=== PATIENT | female | born 1985 | race Caucasian/White ===

== ENCOUNTER 2018-02-06 11:27 | Emergency (ER) | payer OTHER ==
--- NOTE | 2018-02-06 11:42 | EDPHY ---
H & P Time Seen by Provider: 02/06/18 11:41 HPI/ROS: Chief complaint. Abdominal pain HPI. 33-year-old female presents emergency department with upper abdominal pain for 1 week. She describes as aching. There is no radiation. It is mainly epigastric. Seems to hurt more with eating. No nausea vomiting or diarrhea. No previous abdominal surgeries. She also feels a bump in the mid upper abdomen. She is not sick or running a fever. She has some achiness to the left upper thigh were she has some cysts. There has been no trauma. She has no calf pain. No swelling of her legs. No chest pain or shortness of breath. ROS 10 systems were reviewed and negative with the exception of the elements mentioned in the history of present illness Past Medical/Surgical History: Polycystic ovarian syndrome Social History: , nonsmoker, no alcohol Smoking Status: Never smoked Physical Exam: General Appearance: Alert pleasant well-developed female mild distress vital signs are stay Eyes: Pupils equal and round no pallor or injection. ENT, Mouth: Mucous membranes are moist. Respiratory: There are no retractions, lungs are clear to auscultation. Cardiovascular: Regular rate and rhythm. Gastrointestinal: Abdomen is soft with mild tenderness in the epigastrium. I can feel a lump which I believe is the tip of her xiphoid process. There is no masses. No organomegaly. Normal bowel sounds Neurological: Awake and alert, sensory and motor exams grossly normal. Skin: Warm and dry, no rashes. Musculoskeletal: Neck is supple nontender. Extremities some tenderness to the medial upper left thigh but no obvious swelling. No calf pain and no lower extremity swelling Psychiatric: Patient is oriented X 3, there is no agitation. Constitutional: Initial Vital Signs Temperature (C) 36.9 C 02/06/18 11:31 Heart Rate 76 02/06/18 11:31 Respiratory Rate 18 02/06/18 11:31 Blood Pressure 145/89 H 02/06/18 11:31 O2 Sat (%) 98 02/06/18 11:31 O2 Delivery Mode Room Air Allergies/Adverse Reactions: No Known Allergies Allergy (Verified 02/06/18 11:30) Home Medications: Medication Instructions Recorded Famotidine [Pepcid] 40 mg PO BID #14 tablet 02/06/18 Metformin HCl 02/06/18 Medical Decision Making - Diagnostics Imaging Results: Imaging Impressions Abdomen Ultrasound 02/06/18 11:54 Impression: Normal right upper quadrant ultrasound. Findings discussed with JOE Parada MIKE 02/06/2018 at 12:31. Ultrasound of the right upper quadrant is normal. Reviewed by me and discussed with Dr. Cintron Procedures: IV normal saline. GI cocktail. ED Course/Re-evaluation: Re-evaluation at 12:50 p.m..--patient is stable and better The patient, her , and I discussed laboratory evaluation and imaging studies. We discussed treatment plan including criteria for return importance of follow-up and further evaluation. She expresses understanding and agreement Differential Diagnosis: I considered gallbladder disease, pancreatitis. The patient tells me she has been using lots of ibuprofen recently for various aches and pains. I suspect that this is gastritis or irritated stomach. Further evaluation to look for peptic ulcer disease - Data Points Laboratory Results: 02/06/18 12:22 POC Total Bilirubin 0.8 mg/dL mg/dL (0.1-1.4) POC GGT 22 IU/L IU/L (5-65) POC AST 26 IU/L IU/L (14-46) POC ALT 18 IU/L IU/L (9-52) POC Alk Phosphatase 83 IU/L IU/L (38-126) POC Total Protein 8.5 g/dL H g/dL (6.3-8.2) POC Albumin 4.4 g/dL g/dL (3.5-5.0) POC Amylase 37 IU/L IU/L (30-110) Medications Given: Discontinued Medications Al Hydroxide/Mg Hydroxide (Maalox Susp) 30 ml PO ONCE ONE Stop: 02/06/18 11:54 Last Admin: 02/06/18 11:58 Dose: 30 ml Lidocaine (Lidocaine 2% Viscous) 15 ml PO ONCE ONE Stop: 02/06/18 11:54 Last Admin: 02/06/18 11:58 Dose: 15 ml Point of Care Test Results: CBC CBC Collection Date 02/06/18 CBC Collection Time 12:00 WBC 8.8 RBC 5.26 HGB 16.7 HCT 45.5 PLT 322 Neut # 6.1 Neut 69.1 LYMPH # 2.3 LYMPH 26.1 Other WBC # 0.4 Other WBC 4.8 MCV 86.5 Chemistry 02/06/18 12:22 POC Total Bilirubin 0.8 mg/dL mg/dL (0.1-1.4) POC GGT 22 IU/L IU/L (5-65) POC AST 26 IU/L IU/L (14-46) POC ALT 18 IU/L IU/L (9-52) POC Alk Phosphatase 83 IU/L IU/L (38-126) POC Total Protein 8.5 g/dL H g/dL (6.3-8.2) POC Albumin 4.4 g/dL g/dL (3.5-5.0) POC Amylase 37 IU/L IU/L (30-110) Liver Function Tests LFT Collection Date 02/06/18 LFT Collection Time 12:00 Departure - Departure Disposition: Home, Routine, Self-Care Clinical Impression: Abdominal pain Condition: Good Instructions: Gastritis (ED) Additional Instructions: Pepcid twice daily for the next week. Maalox or Mylanta using 2 tbsp at bedtime for the next several days. Switch to Tylenol rather than ibuprofen for pain. Return for worsening symptoms. Recheck at [place] in 2-3 days for continuing symptoms Referrals: NONE *PRIMARY CARE P,. [Primary Care Provider] - As per Instructions [facility] [Outside] - 2-3 days, if not improved Prescriptions: Famotidine [Pepcid] 40 mg PO BID #14 tablet
[2018-02-06] MEDS ORDERED: LIDOCAINE 2% VISCOUS 15 ML UDCUP PO ONE (11:53)
[2018-02-06] MEDS ORDERED: MAG HYDROX/AL HYDROX/SIMETH 30 ML UDCUP PO ONE (11:53)
[2018-02-06 13:07] VITALS: BP 110/78
== END 2018-02-06 13:04 | disposition home or self-care (01) ==
LOC: CED 11:27
DX: K29.70 Gastritis, unspecified, without bleeding (principal)
CPT/HCPCS: 76705-PO; 80076-PO; 82150-PO